=== PATIENT | male | born 1965 | race African-American/Black ===

== ENCOUNTER 2019-03-01 17:58 | Emergency (ER) | payer OTHER ==
[2019-03-01 18:58] LABS: #Eosinphils 0.3 thou/uL (0.0-0.7); #Lymphocytes 1.2 thou/uL (1.20-3.40); #Monocytes 0.6 thou/uL (0.11-0.59); #Neutrophils 2.8 thou/uL (1.40-6.50); %Basophils 0.1 % (0.0-1.0); %Eosinophils 5.6 % (0.0-10.0); %Lymphocytes 24.5 % (21.0-51.0); %Monocytes 13.1 % (0.0-10.0); %Neutrophils 56.6 % (42.0-75.0); Hemoglobin 12.4 g/dL (14.0-18.0); Mean Corpuscular HGB CONC 30.4 g/dL (32.0-36.0); Mean Corpuscular Hemoglobin 27.7 pg (27.0-31.0); Mean Corpuscular Volume 91.2 fL (78.0-98.0); Mean Platelet Volume 7.2 fL (7.4-10.4); Platelet Count 162 thou/uL (130-400); RBC Distribution Width 13.1 % (11.5-14.5); Red Blood Cell (RBC) Count 4.49 mill/uL (4.70-6.10); White Blood Cell (WBC) Count 4.9 thou/uL (4.8-10.8)
--- NOTE | 2019-03-01 19:20 | ULT ---
EXAM: Left lower extremity venous Doppler PROVIDED CLINICAL HISTORY: Edema FINDINGS: Grayscale and color Doppler sonography with spectral analysis was performed of the left common femora l, femoral, popliteal, posterior tibial, greater saphenous and profunda femoral veins. Evaluation is limited by patient body habitus and edema, with nonvisualization of the left common femoral, profu nda femoral, proximal femoral and mid to distal posterior tibial veins. The visualized venous structures demonstrate a normal sonographic appearance. IMPRESSION: No sonographic evidence for left lower extremity deep venous thrombosis with limitations as above.
[2019-03-01 19:26] LABS: ALT (SGPT) 19 U/L (8-55); AST (SGOT) 23 U/L (5-34); Albumin 3.4 g/dL (3.5-5.0); Alkaline Phosphatase 122 U/L (40-150); Anion Gap 9 mmol/L (10-20); BUN (Urea Nitrogen) 25 mg/dL (8.4-25.7); Bilirubin, Total 0.4 mg/dL (0.2-1.2); Calc. Creatinine Clearance 0 mL/min (70-130); Carbon Dioxide 27 mmol/L (22-29); Chloride 104 mmol/L (98-107); Estimated GFR-MDRD 75; Globulin 5.2 g/dL (2.4-3.5); Glucose 178 mg/dL (70-105); Potassium 5.4 mmol/L (3.5-5.1); Protein, Total 8.6 g/dL (6.0-8.3); Sodium 135 mmol/L (136-145)
[2019-03-01 19:48] LABS: PTT 33.8 SEC (22.9-36.1); Prothrombin Time 22.5 SEC (12.0-14.7)
[2019-03-01] MEDS ORDERED: Acetaminophen 325 MG TAB ONE (20:55)
== END 2019-03-01 20:47 ==
LOC: ERS 17:58
DX: I83.028 Varicose veins of left lower extremity with ulcer other part of lower leg (principal); L97.829 Non-pressure chronic ulcer of other part of left lower leg with unspecified severity; I99.8 Other disorder of circulatory system; D64.9 Anemia, unspecified; N40.0 Benign prostatic hyperplasia without lower urinary tract symptoms; G47.30 Sleep apnea, unspecified; Z86.718 Personal history of other venous thrombosis and embolism; E11.9 Type 2 diabetes mellitus without complications; I10 Essential (primary) hypertension; Z79.899 Other long term (current) drug therapy; Z79.82 Long term (current) use of aspirin; Z79.4 Long term (current) use of insulin
CPT/HCPCS: 36415; 80053; 83605; 85025; 85610; 85652; 85730; 86140; 87070; 87077; 87186; 87205

== ENCOUNTER 2019-03-22 12:50 | Emergency (ER) | payer OTHER ==
--- NOTE | 2019-03-22 13:57 | RAD ---
Exam:Left tibia fibula 2 views HISTORY: Pain. COMPARISON: 09/13/2015 FINDINGS: Degenerative change of the left knee, incompletely evaluated. No fracture. No cortical irre gularity or periosteal reaction Extensive soft tissue swelling. Questionable subcutaneous emphysema. Correlate clinically for soft ti ssue cellulitis IMPRESSION: 1. Correlate for soft tissue cellulitis. 2. Degenerative changes of the left knee, incompletely evaluate
[2019-03-22] MEDS ORDERED: Acetaminophen 500 MG TAB ONE (14:36)
[2019-03-22] MEDS ORDERED: Clindamycin/D5W 900 mg/50 ml Premix Bag ONE (14:37)
[2019-03-22 14:44] LABS: #Eosinphils 0.1 thou/uL (0.0-0.7); #Lymphocytes 0.8 thou/uL (1.20-3.40); #Monocytes 0.8 thou/uL (0.11-0.59); %Basophils 0.2 % (0.0-1.0); %Eosinophils 1.3 % (0.0-10.0); %Lymphocytes 9.6 % (21.0-51.0); %Monocytes 8.8 % (0.0-10.0); %Neutrophils 80.1 % (42.0-75.0); Hemoglobin 11.1 g/dL (14.0-18.0); Mean Corpuscular HGB CONC 31.7 g/dL (32.0-36.0); Mean Corpuscular Hemoglobin 28.5 pg (27.0-31.0); Mean Corpuscular Volume 89.8 fL (78.0-98.0); Mean Platelet Volume 7.2 fL (7.4-10.4); Platelet Count 180 thou/uL (130-400); RBC Distribution Width 13.2 % (11.5-14.5); Red Blood Cell (RBC) Count 3.92 mill/uL (4.70-6.10); White Blood Cell (WBC) Count 8.7 thou/uL (4.8-10.8)
[2019-03-22 15:05] LABS: ALT (SGPT) 20 U/L (8-55); AST (SGOT) 19 U/L (5-34); Alkaline Phosphatase 107 U/L (40-150); Anion Gap 9 mmol/L (10-20); BUN (Urea Nitrogen) 20 mg/dL (8.4-25.7); Bilirubin, Total 0.8 mg/dL (0.2-1.2); Calc. Creatinine Clearance 0 mL/min (70-130); Calcium 9.1 mg/dL (7.8-10.44); Carbon Dioxide 29 mmol/L (22-29); Chloride 101 mmol/L (98-107); Estimated GFR-MDRD 74; Globulin 5.8 g/dL (2.4-3.5); Glucose 182 mg/dL (70-105); Potassium 4.3 mmol/L (3.5-5.1); Protein, Total 8.8 g/dL (6.0-8.3); Sodium 135 mmol/L (136-145)
[2019-03-22] MEDS ORDERED: Ketorolac Tromethamine 30 MG/ML VIAL ONE (15:13)
== END 2019-03-22 15:50 ==
LOC: ERS 12:50
DX: L03.116 Cellulitis of left lower limb (principal); I11.0 Hypertensive heart disease with heart failure; I50.9 Heart failure, unspecified; E66.9 Obesity, unspecified; E11.9 Type 2 diabetes mellitus without complications; N40.0 Benign prostatic hyperplasia without lower urinary tract symptoms; D64.9 Anemia, unspecified; Z86.718 Personal history of other venous thrombosis and embolism; Z87.891 Personal history of nicotine dependence; Z79.899 Other long term (current) drug therapy; Z79.4 Long term (current) use of insulin; Z79.01 Long term (current) use of anticoagulants
CPT/HCPCS: 80053; 85025; 96365; 96375; J1885; J3490

== ENCOUNTER 2020-01-23 22:29 | Inpatient (IN) | payer OTHER ==
[2020-01-23 22:57] LABS: #Eosinphils 0.1 thou/uL (0.0-0.7); #Lymphocytes 1.5 thou/uL (1.20-3.40); #Monocytes 0.7 thou/uL (0.11-0.59); #Neutrophils 2.6 thou/uL (1.40-6.50); %Basophils 0.5 % (0.0-1.0); %Eosinophils 2.7 % (0.0-10.0); %Lymphocytes 30.7 % (21.0-51.0); %Monocytes 14.4 % (0.0-10.0); %Neutrophils 51.7 % (42.0-75.0); Hemoglobin 12.5 g/dL (14.0-18.0); Mean Corpuscular HGB CONC 33.2 g/dL (32.0-36.0); Mean Corpuscular Hemoglobin 29.5 pg (27.0-31.0); Mean Corpuscular Volume 88.8 fL (78.0-98.0); Platelet Count 255 thou/uL (130-400); RBC Distribution Width 12.7 % (11.5-14.5); Red Blood Cell (RBC) Count 4.23 mill/uL (4.70-6.10)
[2020-01-23 23:12] LABS: Bilirubin Negative (Negative); Blood, Urine Negative (Negative); Clarity Clear (Clear); Glucose, Urine (Dipstick) Normal (Negative); Leukocyte Negative Leu/uL (Negative); Nitrite Negative (Negative); Protein, Urine (Dipstick) 70 mg/dL (Neg-Trace); RBC/HPF 0-3 HPF (0-3); Squamous Epithelial 0-3 HPF (0-3); Urobilinogen 6 mg/dL (Less than 2)
[2020-01-23 23:13] LABS: Bacteria/HPF 1+ HPF (None Seen)
[2020-01-23 23:28] LABS: ALT (SGPT) 42 U/L (8-55); AST (SGOT) 47 U/L (5-34); Albumin 2.8 g/dL (3.5-5.0); Alkaline Phosphatase 76 U/L (40-110); Anion Gap 12 mmol/L (10-20); BUN (Urea Nitrogen) 15 mg/dL (8.4-25.7); Bilirubin, Total 0.5 mg/dL (0.2-1.2); Calc. Creatinine Clearance 0 mL/min (70-130); Calcium 8.2 mg/dL (7.8-10.44); Carbon Dioxide 23 mmol/L (22-29); Chloride 99 mmol/L (98-107); Estimated GFR-MDRD 66; Globulin 5.5 g/dL (2.4-3.5); Glucose 151 mg/dL (70-105); Lipase 48 U/L (8-78); Potassium 3.6 mmol/L (3.5-5.1); Protein, Total 8.3 g/dL (6.0-8.3); Sodium 130 mmol/L (136-145)
[2020-01-23 23:39] LABS: CKMB 0.7 ng/mL (0-6.6)
[2020-01-24] MEDS ORDERED: Nitroglycerin 0.4 MG TAB (25 Tab Bottle) PO PRN (02:05)
[2020-01-24] MEDS ORDERED: Dextrose 5% in Water 1,000 ML IV PRN (02:27)
[2020-01-24] MEDS ORDERED: Dextrose 50% Abboject 50 ML SYRINGE SLOW IVP PRN (02:27)
[2020-01-24] MEDS ORDERED: Aspirin 325 MG TAB PO SCH (02:30)
--- NOTE | 2020-01-24 02:38 | PDOC.EVN ---
Event Note - Event Note Event Note: H&P dictated [id number]
[2020-01-24 03:33] LABS: ALT (SGPT) 40 U/L (8-55); AST (SGOT) 46 U/L (5-34); Albumin 2.7 g/dL (3.5-5.0); Alkaline Phosphatase 71 U/L (40-110); Anion Gap 12 mmol/L (10-20); BUN (Urea Nitrogen) 15 mg/dL (8.4-25.7); Bilirubin, Total 0.5 mg/dL (0.2-1.2); Calc. Creatinine Clearance 0 mL/min (70-130); Calcium 8.1 mg/dL (7.8-10.44); Carbon Dioxide 25 mmol/L (22-29); Chloride 99 mmol/L (98-107); Estimated GFR-MDRD 64; Globulin 5.6 g/dL (2.4-3.5); Glucose 132 mg/dL (70-105); Potassium 3.8 mmol/L (3.5-5.1); Protein, Total 8.3 g/dL (6.0-8.3); Sodium 132 mmol/L (136-145)
[2020-01-24 03:53] LABS: CKMB 1.1 ng/mL (0-6.6)
--- NOTE | 2020-01-24 04:00 | HP ---
CHIEF COMPLAINT: Abdominal pain. HISTORY OF PRESENT ILLNESS: Mr. Cordero is a 54-year-old male with past medical history of diabetes mellitus, hypertension, morbid obesity, hepatitis C, peripheral vascular disease, deep venous thrombosis, CHF?, among others presents to the emergency room with abdominal pain, lower, associated with nausea and vomiting. The patient also reported dizziness and weakness. Initial blood pressure was 185/120. Three sprays of nitroglycerin and 1 inch nitroglycerin paste around 10 p.m. Blood pressure on presentation was 135/84. Workup in the emergency room including CT of the abdomen, no acute finding. Lab work; the patient had an indeterminate troponin of 0.059. EKG, no acute finding. The patient had a creatinine of 1.36. Sodium of 130. The patient is being admitted to the hospital for further management. PAST MEDICAL HISTORY: As mentioned above in history of present illness. PAST SURGICAL HISTORY: 1. Prostate biopsy. 2. Incision and drainage to the leg. 3. Tracheostomy. SOCIAL HISTORY: He is a former smoker. Denies alcohol drinking or drug abuse. The patient is currently in shelter/intermediate. FAMILY HISTORY: Reviewed and noncontributory. ALLERGIES: IBUPROFEN AND VANCOMYCIN. HOME MEDICATIONS: Please see home medication reconciliation form for updated medications. REVIEW OF SYSTEMS: Review of 14 systems is negative except what is mentioned in the history of present illness. PHYSICAL EXAMINATION: GENERAL: The patient is awake, alert, in moderate distress, morbidly obese. VITAL SIGNS: Blood pressure 158/55, pulse is 94, respiratory rate is 20, temperature is 99, and oxygen saturation 100% on room air. HEAD AND NECK: Normocephalic and atraumatic. Neck is supple. No JVD. CHEST: Fair bilateral air entry. HEART: S1 and S2. Regular. ABDOMEN: Soft with mild lower abdominal tenderness. Bowel sounds present, morbidly obese. NEUROLOGIC: Awake, alert, and oriented x3. PSYCH: Normal mood. EXTREMITIES: Left lower leg is wrapped in dressing. The patient has chronic ulcers. NEUROLOGIC: Awake, alert, and oriented x4. No focal deficits. PSYCH: Unable to assess. EXTREMITIES: No clubbing. No cyanosis. LABORATORY DATA: Sodium is 130, potassium is 3.6, creatinine 1.36, glucose 151. WBC is 5, hemoglobin 12.5, platelets 255. Troponin 0.059. CT of the abdomen reported as no acute finding, official report is not available at the time of dictation. ASSESSMENT: 1. Acute abdominal pain. 2. Indeterminate/mildly elevated troponin. 3. Diabetes mellitus, type 2. 4. Hypertension. 5. Morbid obesity. 6. Acute kidney injury. PLAN: 1. Admit. 2. Tele monitoring. 3. Aspirin was given. 4. We will start the patient cautiously on IV fluids, reassess in a.m. 5. Monitor kidney function and urine output. 6. Serial troponins. 7. Consult Cardiology in a.m. for evaluation and further recommendations. 8. Reconcile home medications. 9. DVT prophylaxis as appropriate. 10. Expected length of stay, 1 midnight if the patient is stable and further workup negative. Job ID: [id number]
[2020-01-24 04:18] VITALS: BMI 62.1
[2020-01-24] MEDS: Sodium Chloride 0.9% 1,000 ML IV SCH ×2 (04:25→15:18)
[2020-01-24] MEDS ORDERED: Enoxaparin Sodium 40 MG/0.4 ML SYRINGE SC SCH (09:00)
[2020-01-24] MEDS ORDERED: Aspirin 325 mg Enteric Coated Tablet PO SCH (09:00)
--- NOTE | 2020-01-24 10:38 | CT ---
PRELIMINARY REPORT/[facility]/EMERGENCY AFTER HOURS PROCEDURE EXAM: CT Abdomen and Pelvis with Intravenous Contrast CLINICAL HISTORY: Patient here for abdominal that started 3-4 days ago. Located in upper abdomen. Fee ls crampy. Had an episode of vomiting 3 days ago. Denies any cardiac hx. No diarrhea. Denies any feve r. Denies any abd surgeries. Pain got worse. Positioning makes pain better. Denies urinary sx. States that he had Lt sided chest pain earlier. TECHNIQUE: Axial computed tomography images of the abdomen and pelvis with intravenous contrast. CONTRAST: With; 100ML ISO 370 COMPARISON: None provided. FINDINGS: LUNG BASES: Moderate patchy peripheral-predominant opacities in the lung bases most consistent with i nfectious pneumonitis. Cardiomegaly. LIVER: Unremarkable. GALLBLADDER AND BILE DUCTS: Cholelithiasis. PANCREAS: Unremarkable. SPLEEN: Unremarkable. ADRENAL GLANDS: Unremarkable. KIDNEYS, URETERS, AND BLADDER: Moderate-severe left renal atrophy. STOMACH AND BOWEL: No obstruction. No wall thickening. No CT evidence of colitis or acute diverticuli tis. APPENDIX: No CT evidence for appendicitis. PERITONEUM: No free fluid. No free air. REPRODUCTIVE: Unremarkable as visualized. VASCULATURE: IVC filter. BONES: Congenitally shortened pedicles and degenerative changes resulting in varying degrees of centr al canal and neural foraminal stenosis. ABDOMINAL WALL AND SOFT TISSUES: Unremarkable. MISCELLANEOUS: Limited evaluation due to scatter from patient body habitus and motion blur. IMPRESSION: 1. Limited evaluation due to scatter from patient body habitus and motion blur. 2. Moderate patchy peripheral-predominant opacities in the lung bases most consistent with infectious pneumonitis. 3. Cardiomegaly. 4. Cholelithiasis. 5. Moderate-severe left renal atrophy. 6. Congenitally shortened pedicles and degenerative changes resulting in varying degrees of central c anal and neural foraminal stenosis. ELECTRONICALLY SIGNED BY: Urban Celaya MD Jan 24, 2020 12:35:48 AM CDT FINAL REPORT CT ABDOMEN AND PELVIS WITH IV CONTRAST: No acute intraabdominal process. There are other findings noted on preliminary report. I am in agre ement with the preliminary report. POS: AGW
--- NOTE | 2020-01-24 12:40 | PDOC.HOSPP ---
- Subjective Encounter Date: 01/24/20 Encounter Time: 12:40 Subjective: Mr. Cordero was seen today in follow-up of abdominal pain. He says the pin wants to make him cough. He notes some mild dyspnea as well. - Objective Vital Signs & Weight: Vital Signs (12 hours) Temp Pulse Resp BP Pulse Ox 01/24/20 07:57 97.1 F L 93 17 174/93 H 99 01/24/20 05:00 96.8 F L 90 18 166/78 H 94 L 01/24/20 04:18 99.7 F H 93 20 149/96 H 92 L Weight Weight 408 lb 12.8 oz I&O: 01/23/20 01/24/20 01/25/20 06:59 06:59 06:59 Intake Total 300 Balance 300 Result Diagrams: 01/23/20 22:42 01/24/20 03:03 Hospitalist ROS - Medication Medications: Active Medications Generic Name Dose Route Start Last Admin Trade Name Freq PRN Reason Stop Dose Admin Aspirin 325 mg 01/24/20 09:00 01/24/20 07:51 Ecotrin PO 325 mg DAILY GLORIA Administration Enoxaparin Sodium 40 mg 01/24/20 09:00 01/24/20 07:51 Lovenox SC 40 mg 0900 GLORIA Administration Sodium Chloride 1,000 mls @ 75 mls/hr 01/24/20 02:30 01/24/20 04:25 Normal Saline 0.9% IV 1,000 mls .[id number] GLORIA Administration - Exam Eye: PERRL, anicteric sclera Heart: RRR, no murmur, no gallops, no rubs, normal peripheral pulses Respiratory: CTAB (+ mild rales at the bases), no wheezes, no ronchi, no tachypnea Gastrointestinal: soft, non-tender, non-distended, normal bowel sounds, no palpable masses Extremities: 1+ LE edema (Left >right, with chronic venous stasis changes) Hosp A/P (1) Abdominal pain Code(s): R10.9 - UNSPECIFIED ABDOMINAL PAIN Status: Acute (2) Morbid obesity Code(s): E66.01 - MORBID (SEVERE) OBESITY DUE TO EXCESS CALORIES Status: Acute (3) Obstructive sleep apnea of adult Code(s): G47.33 - OBSTRUCTIVE SLEEP APNEA (ADULT) (PEDIATRIC) Status: Acute (4) DM type 2 (diabetes mellitus, type 2) Status: Chronic (5) Hypertension Code(s): I10 - ESSENTIAL (PRIMARY) HYPERTENSION Status: Chronic - Plan * Abdominal pain- I suspect this is referred from from Pneumonia. The CT scan results were noted. His troponin's are elevated, but less than what they have been in the past. I doubt this is cardiac * HTN- blood pressure is elevated- will re-start his home medications * DM- blood glucose is stable * Awaiting COVID test
[2020-01-24 13:26] LABS: INR-International Normal Ratio 3.1; Prothrombin Time 31.8 sec (12.0-14.7)
[2020-01-24] MEDS ORDERED: Metoprolol Tartrate 100 MG TAB PO SCH (13:45)
[2020-01-24] MEDS: Furosemide 40 MG TAB PO SCH (13:53)
[2020-01-24 14:13] LABS: SARS-CoV-2 MS2 Positive; SARS-CoV-2 N Gene Positive; SARS-CoV-2 S Gene Negative; SARS-CoV-2 orf1ab Positive
[2020-01-24] MEDS ORDERED: Non-Formulary Item 1 EACH (Terazosin Hcl [Hytrin] 10 MG) PO SCH (21:00)
[2020-01-24] MEDS ORDERED: Non-Formulary Item 1 EACH (Ascorbate Calcium [Vitamin C] 500 MG) PO SCH (21:00)
[2020-01-24] MEDS ORDERED: Furosemide 80 MG TAB PO SCH (21:00)
[2020-01-24] MEDS: carBAMazepine 200 MG TAB PO SCH (22:57)
[2020-01-24] MEDS: Ascorbic Acid 500 mg Chewable Tablet PO SCH (22:57)
[2020-01-24] MEDS: Terazosin HCl 5 MG CAP PO SCH (22:58)
[2020-01-24] MEDS: Metoprolol Tartrate 100 MG TAB PO SCH (22:58)
[2020-01-24] MEDS: NPH, Human Insulin Isophane 300 UNIT/3 ML VIAL SC SCH ×2 (23:04→23:38)
[2020-01-25 05:34] LABS: INR-International Normal Ratio 2.7; Prothrombin Time 28.3 sec (12.0-14.7)
[2020-01-25 05:46] LABS: Anion Gap 7 mmol/L (10-20); BUN (Urea Nitrogen) 14 mg/dL (8.4-25.7); Calc. Creatinine Clearance 184 mL/min (70-130); Calcium 8.5 mg/dL (7.8-10.44); Carbon Dioxide 30 mmol/L (22-29); Chloride 103 mmol/L (98-107); Estimated GFR-MDRD 77; Glucose 214 mg/dL (70-105); Potassium 4.4 mmol/L (3.5-5.1); Sodium 136 mmol/L (136-145)
[2020-01-25] MEDS: Sodium Chloride 0.9% 1,000 ML IV SCH (05:59)
[2020-01-25] MEDS: HumaLOG 300 UNITS/3 ML VIAL SC PRN ×3 (05:59→16:33)
[2020-01-25 06:05] LABS: Band 4 % (5-11); Eosinophils 3 % (0-10); Hemoglobin 12.7 g/dL (14.0-18.0); Lymphocytes 24 % (21-51); MDiff Complete? YES; Mean Corpuscular HGB CONC 33.2 g/dL (32.0-36.0); Mean Corpuscular Hemoglobin 30.1 pg (27.0-31.0); Mean Corpuscular Volume 90.5 fL (78.0-98.0); Mean Platelet Volume 6.8 fL (7.4-10.4); Monocytes 8 % (0-10); Neutrophil 61 % (42-75); Platelet Count 280 thou/uL (130-400); RBC Distribution Width 12.8 % (11.5-14.5); Red Blood Cell (RBC) Count 4.21 mill/uL (4.70-6.10); White Blood Cell (WBC) Count 4.7 thou/uL (4.8-10.8)
[2020-01-25] MEDS ORDERED: cloNIDine 0.1 MG TAB PO PRN (08:12)
[2020-01-25] MEDS ORDERED: Non-Formulary Item 1 EACH (Multivitamin [Multivitamins] 1 CAP) PO SCH (09:00)
[2020-01-25] MEDS ORDERED: Warfarin Sodium 2.5 MG TAB PO SCH (09:00)
[2020-01-25] MEDS: Ascorbic Acid 500 mg Chewable Tablet PO SCH ×2 (09:40→20:09)
[2020-01-25] MEDS: Metoprolol Tartrate 100 MG TAB PO SCH ×2 (09:40→20:10)
[2020-01-25] MEDS: carBAMazepine 200 MG TAB PO SCH ×2 (09:40→20:09)
[2020-01-25] MEDS: Multivit, Therapeutic 1 TAB PO SCH (09:40)
[2020-01-25] MEDS: Spironolactone 25 MG TAB PO SCH (09:41)
[2020-01-25] MEDS: Furosemide 40 MG TAB PO SCH ×2 (09:41→16:17)
--- NOTE | 2020-01-25 16:04 | PDOC.HOSPP ---
- Subjective Encounter Date: 01/25/20 Encounter Time: 16:02 Subjective: Mr. Cordero was seen today in follow-up of COVID pneumonia. He notes pain in his chest when he coughs, and he feels short of breath, when he coughs. Otherwise he feels ok. He denies leg pain or swelling. - Objective Vital Signs & Weight: Vital Signs (12 hours) Temp Pulse Resp BP Pulse Ox 01/25/20 11:52 99.3 F 92 18 166/95 H 98 01/25/20 08:46 96 01/25/20 07:43 99.2 F 110 H 20 177/109 H 96 Weight Admit Weight 408 lb 12.8 oz Weight 408 lb 12.8 oz I&O: 01/24/20 01/25/20 01/26/20 06:59 06:59 06:59 Intake Total 300 2445 Output Total 1550 490 Balance 300 895 490 Result Diagrams: 01/25/20 04:39 01/25/20 04:39 Additional Labs: Accuchecks 01/25/20 01/24/20 01/24/20 11:43 23:14 17:51 POC Glucose 160 H 141 H 143 H Hospitalist ROS - Medication Medications: Active Medications Generic Name Dose Route Start Last Admin Trade Name Freq PRN Reason Stop Dose Admin Ascorbic Acid 500 mg 01/24/20 21:00 01/25/20 09:40 Vitamin C PO 500 mg BID GLORIA Administration Carbamazepine 600 mg 01/24/20 21:00 01/25/20 09:40 Tegretol PO 600 mg BID GLORIA Administration Furosemide 40 mg 01/24/20 14:00 01/25/20 09:41 Lasix PO 40 mg 0900,1400 GLORIA Administration Insulin Human Lispro 0 units 01/24/20 02:27 01/25/20 11:46 Humalog SC 2 unit .MILD SLIDING SCALE PRN Administration Mild Correctional Scale Insulin Human NPH 26 unit 01/24/20 21:00 01/24/20 23:38 Humulin N SC Not Given HS GLORIA Isosorbide Mononitrate 60 mg 01/25/20 09:00 01/25/20 09:41 Imdur PO 60 mg DAILY GLORIA Administration Metoprolol Tartrate 100 mg 01/24/20 21:00 01/25/20 09:40 Lopressor PO 100 mg BID GLORIA Administration Multivitamins 1 tab 01/25/20 09:00 01/25/20 09:40 Theragran PO 1 tab DAILY GLORIA Administration Sodium Chloride 10 ml 01/24/20 21:00 01/25/20 09:41 Flush - Normal Saline IVF Not Given Q12HR GLORIA Spironolactone 50 mg 01/25/20 09:00 01/25/20 09:41 Aldactone PO 50 mg DAILY GLORIA Administration Terazosin HCl 10 mg 01/24/20 21:00 01/24/20 22:58 Hytrin PO 10 mg HS GLORIA Administration - Exam Eye: PERRL, anicteric sclera Heart: RRR, no murmur, no gallops, no rubs, normal peripheral pulses Respiratory: rales, rhonchi (+ bilateral rales and rhonchi9 throughout.) Gastrointestinal: soft, non-tender, non-distended, normal bowel sounds Extremities: 1+ LE edema (+ chronic venous stasis changes) Hosp A/P (1) Abdominal pain Code(s): R10.9 - UNSPECIFIED ABDOMINAL PAIN Status: Acute (2) Morbid obesity Code(s): E66.01 - MORBID (SEVERE) OBESITY DUE TO EXCESS CALORIES Status: Acute (3) Obstructive sleep apnea of adult Code(s): G47.33 - OBSTRUCTIVE SLEEP APNEA (ADULT) (PEDIATRIC) Status: Acute (4) DM type 2 (diabetes mellitus, type 2) Status: Chronic (5) Hypertension Code(s): I10 - ESSENTIAL (PRIMARY) HYPERTENSION Status: Chronic - Plan * COVID pneumonia- continue symptomatic care * Will continue full dose lovenox, and trend inflammatory markers * HTN- Continue his home medications, and add Clonidine as needed * DM- blood glucose is stable
[2020-01-25] MEDS: Warfarin Sodium 2.5 MG TAB PO SCH (16:17)
[2020-01-25] MEDS: Terazosin HCl 5 MG CAP PO SCH (20:09)
[2020-01-25] MEDS: NPH, Human Insulin Isophane 300 UNIT/3 ML VIAL SC SCH (21:16)
[2020-01-26] MEDS: hydrALAZINE 25 MG TAB PO PRN ×2 (02:54→11:34)
[2020-01-26 05:51] LABS: INR-International Normal Ratio 1.8; Prothrombin Time 20.6 sec (12.0-14.7)
[2020-01-26 05:53] LABS: D-Dimer Test 0.87 *mcg/mL (0.27-0.43)
--- NOTE | 2020-01-26 06:31 | CON ---
DATE OF CONSULTATION: 01/25/2020 REASON FOR CONSULTATION: COVID pneumonia. HISTORY OF PRESENT ILLNESS: A 54-year-old whom I had seen in the past in 2016 with a history of morbid obesity, type 2 diabetes, BRANDEN with recurrent cellulitis in lower extremities and lymphedema. This time, he was brought in with a 14-day history of cough, worsening abdominal pain, diarrhea, and some vomiting. Initial findings are BP 130/70, temperature 98.8, pulse 103, respiratory rate, and O2 saturations 97 room air. He did not appear in distress. There is some tenderness in the abdomen, which is diffuse. Other findings are white cell count 5.0, hemoglobin 12, platelets 255 with total lymphocyte count 1.5. COVID was detected. Creatinine 1.36, AST 47, and albumin 2.8. The patient has not required oxygen supplementation and has kept his O2 sats anywhere from 96 to 100. Currently, he is still having intermittent coughing spells, some sputum production, still with some abdominal cramps and diarrhea. No more vomiting. No headaches. No visual symptoms, sore throat, odynophagia, or dysphagia. No odor or smell disturbance. No back pain. No lower extremity symptoms. MEDICAL HISTORY: 1. Obesity. 2. Cellulitis in the lower extremities. 3. Sleep apnea. 4. Anemia. 5. Hypertension. 6. Prior deep vein thrombosis. FAMILY HISTORY: Type 2 diabetes and obesity. ALLERGIES: VANCOMYCIN AND IBUPROFEN. SOCIAL HISTORY: He is an inmate at [facility] for quite a few years now. PHYSICAL EXAMINATION: VITAL SIGNS: T-max 99.7 when he came and now 99.3, blood pressure 160/90, pulse 92, respirations 18, and O2 saturation 98. SKIN: He has a little small ulcer in the left leg anterior aspect with fresh granulation tissue. He has a peripheral IV access and voiding spontaneously in the urinal. HEENT: Ocular movements conjugate. Oral cavity normal. NECK: Supple. LUNGS: Symmetric air entry. No crackles or wheezing. HEART: S1 and S2. Regular rate. No S3 or S4. ABDOMEN: Very prominent panniculus and mildly tender. Bowel sounds are present. No bladder distention. No genital abnormalities. EXTREMITIES: He has lymphedema in lower extremities. He moves extremities equally. NEUROLOGIC: Cognitive function appears to be intact. He is able to speak in full sentences. Oriented and alert. LABORATORY DATA: Last labs with sodium 136 and creatinine 1.19. Ferritin 383, single measurement thus far. INR 2.7. He had an abdomen and pelvis CT, which was done for evaluation of abdominal pain and it showed patchy opacities in lung bases, cardiomegaly, and renal atrophy. ASSESSMENT: 1. Obesity. 2. Sleep apnea. 3. COVID-19 infection with 2 weeks duration course of illness thus far, not requiring oxygen supplementation. The patient is not a candidate for remdesivir and I do not think he would be a candidate for plasma or other intervention due to the mild course of his illness thus far. He is at 14 days now and I would not expect him to deteriorate going forward. Job ID: [id number] [facility]
[2020-01-26] MEDS: carBAMazepine 200 MG TAB PO SCH ×2 (09:17→21:07)
[2020-01-26] MEDS: Folic Acid/Vit B Comp W-C PO SCH (09:18)
[2020-01-26] MEDS: Furosemide 40 MG TAB PO SCH ×2 (09:18→15:34)
[2020-01-26] MEDS: Metoprolol Tartrate 100 MG TAB PO SCH ×2 (09:18→21:08)
[2020-01-26] MEDS: Ascorbic Acid 500 mg Chewable Tablet PO SCH ×2 (09:18→21:07)
[2020-01-26] MEDS: Multivit, Therapeutic 1 TAB PO SCH (09:18)
[2020-01-26] MEDS: Spironolactone 25 MG TAB PO SCH (09:18)
[2020-01-26] MEDS: cloNIDine 0.1 MG TAB PO SCH ×3 (09:20→21:08)
[2020-01-26] MEDS: HumaLOG 300 UNITS/3 ML VIAL SC PRN ×2 (12:20→17:36)
--- NOTE | 2020-01-26 17:19 | PRG ---
DATE OF SERVICE: 01/26/2020 SUBJECTIVE: He is feeling better except for, he is very hungry because they do not give him enough food. No cough. No dyspnea. Abdominal pain has resolved. OBJECTIVE: VITAL SIGNS: He has been afebrile, pulse 99, O2 saturations 99 on room air. GENERAL: Appears in no distress and oriented. LUNGS: Clear. HEART: S1 and S2. Regular rate. ABDOMEN: Soft, not distended or tender. LABORATORY DATA: White cell count 4.7 and hemoglobin 12.7. CRP is 10.65. Ferritin was 383. D-dimer 0.87. ASSESSMENT AND DISCUSSION: 1. Obesity. 2. Sleep apnea. 3. COVID-19 infection with stable course. We will recheck his inflammatory markers tomorrow. If they are stable or going down, I would consider discharge planning. This is the 15th day of illness and I do not think he is going to deteriorate from here. Job ID: [id number]
--- NOTE | 2020-01-26 17:33 | PDOC.HOSPP ---
- Subjective Encounter Date: 01/26/20 Encounter Time: 17:31 Subjective: Mr. Cordero was seen today in follow-up of COVID pneumonia. He is beginning to feel better. He was laying flat in bed. His appetite has improved, and he says he is not getting enough to eat. - Objective Vital Signs & Weight: Vital Signs (12 hours) Temp Pulse Resp BP Pulse Ox 01/26/20 15:41 99.1 F 99 18 194/94 H 99 01/26/20 12:00 98.7 F 82 18 184/92 H 98 01/26/20 09:26 98.8 F 110 H 21 H 224/132 H 98 Weight Admit Weight 408 lb 12.8 oz Weight 401 lb 8 oz I&O: 01/25/20 01/26/20 01/27/20 06:59 06:59 06:59 Intake Total 2445 1380.75 Output Total 1550 2090 Balance 895 -709.25 Result Diagrams: 01/25/20 04:39 01/25/20 04:39 Additional Labs: Accuchecks 01/26/20 01/26/20 01/26/20 15:44 11:48 05:51 POC Glucose 187 H 190 H 164 H 01/25/20 20:20 POC Glucose 144 H Hospitalist ROS - Medication Medications: Active Medications Generic Name Dose Route Start Last Admin Trade Name Freq PRN Reason Stop Dose Admin Ascorbic Acid 500 mg 01/24/20 21:00 01/26/20 09:18 Vitamin C PO 500 mg BID GLORIA Administration Carbamazepine 600 mg 01/24/20 21:00 01/26/20 09:17 Tegretol PO 600 mg BID GLORIA Administration Clonidine 0.1 mg 01/26/20 09:00 01/26/20 15:34 Catapres PO 0.1 mg TID GLORIA Administration Furosemide 40 mg 01/24/20 14:00 01/26/20 15:34 Lasix PO 40 mg 0900,1400 GLORIA Administration Hydralazine HCl 25 mg 01/24/20 14:41 01/26/20 11:34 Apresoline PO 25 mg TIDPRN PRN Administration SBP Greater Than 170 Insulin Human Lispro 0 units 01/24/20 02:27 01/26/20 12:20 Humalog SC 2 unit .MILD SLIDING SCALE PRN Administration Mild Correctional Scale Insulin Human NPH 26 unit 01/24/20 21:00 01/25/20 21:16 Humulin N SC Not Given HS GLORIA Isosorbide Mononitrate 60 mg 01/25/20 09:00 01/26/20 09:18 Imdur PO 60 mg DAILY GLORIA Administration Metoprolol Tartrate 100 mg 01/24/20 21:00 01/26/20 09:18 Lopressor PO 100 mg BID GLORIA Administration Multivitamins 1 tab 01/25/20 09:00 01/26/20 09:18 Theragran PO 1 tab DAILY GLORIA Administration Sodium Chloride 10 ml 01/24/20 21:00 01/26/20 09:20 Flush - Normal Saline IVF 10 ml Q12HR GLORIA Administration Spironolactone 50 mg 01/25/20 09:00 01/26/20 09:18 Aldactone PO 50 mg DAILY GLROIA Administration Terazosin HCl 10 mg 01/24/20 21:00 01/25/20 20:09 Hytrin PO 10 mg HS GLORIA Administration Vitamin B Complex/Vit C/Folic Acid 1 tab 01/26/20 09:00 01/26/20 09:18 Nephro-Josafat Tablet PO 1 tab DAILY GLORIA Administration Warfarin Sodium 2.5 mg 01/25/20 17:00 01/25/20 16:17 Coumadin PO 2.5 mg 1700 GLORIA Administration - Exam Eye: PERRL, anicteric sclera Heart: RRR, no murmur, no gallops, no rubs, normal peripheral pulses Respiratory: CTAB, no wheezes, no rales, no ronchi, normal chest expansion Gastrointestinal: soft, non-tender, non-distended, normal bowel sounds, no palpable masses, no hepatomegaly Extremities: 1+ LE edema (+ venous stasis changes) Hosp A/P (1) Abdominal pain Code(s): R10.9 - UNSPECIFIED ABDOMINAL PAIN Status: Acute (2) Morbid obesity Code(s): E66.01 - MORBID (SEVERE) OBESITY DUE TO EXCESS CALORIES Status: Acute (3) Obstructive sleep apnea of adult Code(s): G47.33 - OBSTRUCTIVE SLEEP APNEA (ADULT) (PEDIATRIC) Status: Acute (4) DM type 2 (diabetes mellitus, type 2) Status: Chronic (5) Hypertension Code(s): I10 - ESSENTIAL (PRIMARY) HYPERTENSION Status: Chronic - Plan * COVID pneumonia- continue symptomatic care * Will continue full dose lovenox, and trend inflammatory markers * HTN- Scheduled Clonidine was added * DM- blood glucose is stable * Hopefully discharge tomorrow if his inflammatory markers show a downward trend
[2020-01-26] MEDS ORDERED: Labetalol HCl 100 MG/20 ML VIAL SLOW IVP PRN (17:35)
[2020-01-26] MEDS: Warfarin Sodium 2.5 MG TAB PO SCH (17:35)
[2020-01-26] MEDS: NPH, Human Insulin Isophane 300 UNIT/3 ML VIAL SC SCH (21:10)
[2020-01-26] MEDS: Terazosin HCl 5 MG CAP PO SCH (21:11)
[2020-01-27] MEDS: hydrALAZINE 25 MG TAB PO PRN (02:01)
[2020-01-27] MEDS: HumaLOG 300 UNITS/3 ML VIAL SC PRN ×2 (06:08→13:11)
[2020-01-27 06:19] LABS: INR-International Normal Ratio 1.5; Prothrombin Time 18.2 sec (12.0-14.7)
[2020-01-27 06:20] LABS: D-Dimer Test 1.15 *mcg/mL (0.27-0.43)
[2020-01-27] MEDS: carBAMazepine 200 MG TAB PO SCH ×2 (09:50→20:26)
[2020-01-27] MEDS: Metoprolol Tartrate 100 MG TAB PO SCH ×2 (09:51→20:27)
[2020-01-27] MEDS: Ascorbic Acid 500 mg Chewable Tablet PO SCH ×2 (09:51→20:27)
[2020-01-27] MEDS: Furosemide 40 MG TAB PO SCH ×2 (09:51→13:00)
[2020-01-27] MEDS: cloNIDine 0.1 MG TAB PO SCH ×3 (09:51→20:28)
[2020-01-27] MEDS: Spironolactone 25 MG TAB PO SCH (09:51)
[2020-01-27] MEDS: Multivit, Therapeutic 1 TAB PO SCH (09:52)
[2020-01-27] MEDS: Folic Acid/Vit B Comp W-C PO SCH (09:52)
--- NOTE | 2020-01-27 13:35 | PDOC.HOSPP ---
- Subjective Encounter Date: 01/27/20 Encounter Time: 13:34 Subjective: Mr. Cordero was seen today in follow-up of COVID pneumonia. He notes some diarrhea, but otherwise ok. His breathing has improved. - Objective Vital Signs & Weight: Vital Signs (12 hours) Temp Pulse Resp BP BP Pulse Ox 01/27/20 10:15 96.6 F L 89 17 183/92 H 94 L 01/27/20 03:15 99.0 F 103 H 16 178/103 H 96 Weight Admit Weight 408 lb 12.8 oz Weight 402 lb I&O: 01/26/20 01/27/20 01/28/20 06:59 06:59 06:59 Intake Total 1380.75 1090 Output Total 2090 1700 Balance -709.25 -610 Result Diagrams: 01/25/20 04:39 01/25/20 04:39 Additional Labs: Accuchecks 01/27/20 01/27/20 01/27/20 13:10 10:09 06:11 POC Glucose 176 H 135 H 154 H 01/27/20 01/26/20 00:28 15:44 POC Glucose 164 H 187 H Hospitalist ROS - Medication Medications: Active Medications Generic Name Dose Route Start Last Admin Trade Name Freq PRN Reason Stop Dose Admin Ascorbic Acid 500 mg 01/24/20 21:00 01/27/20 09:51 Vitamin C PO 500 mg BID GLORIA Administration Carbamazepine 600 mg 01/24/20 21:00 01/27/20 09:50 Tegretol PO 600 mg BID GLORIA Administration Clonidine 0.1 mg 01/25/20 08:12 01/27/20 04:42 Catapres PO 0.1 mg Q4H PRN Administration SBP GREATER THAN 160 Clonidine 0.2 mg 01/27/20 09:00 01/27/20 09:51 Catapres PO 0.2 mg TID GLORIA Administration Furosemide 40 mg 01/24/20 14:00 01/27/20 13:00 Lasix PO 40 mg 0900,1400 GLORIA Administration Hydralazine HCl 25 mg 01/24/20 14:41 01/27/20 02:01 Apresoline PO 25 mg TIDPRN PRN Administration SBP Greater Than 170 Insulin Human Lispro 0 units 01/24/20 02:27 01/27/20 13:11 Humalog SC 2 unit .MILD SLIDING SCALE PRN Administration Mild Correctional Scale Insulin Human NPH 26 unit 01/24/20 21:00 01/26/20 21:10 Humulin N SC 26 unit HS GLORIA Administration Isosorbide Mononitrate 60 mg 01/25/20 09:00 01/27/20 09:52 Imdur PO 60 mg DAILY GLORIA Administration Metoprolol Tartrate 100 mg 01/24/20 21:00 01/27/20 09:51 Lopressor PO 100 mg BID GLORIA Administration Multivitamins 1 tab 01/25/20 09:00 01/27/20 09:52 Theragran PO 1 tab DAILY GLORIA Administration Sodium Chloride 10 ml 01/24/20 21:00 01/27/20 09:52 Flush - Normal Saline IVF 10 ml Q12HR GLORIA Administration Spironolactone 50 mg 01/25/20 09:00 01/27/20 09:51 Aldactone PO 50 mg DAILY GLORIA Administration Terazosin HCl 10 mg 01/24/20 21:00 01/26/20 21:11 Hytrin PO 10 mg HS GLORIA Administration Vitamin B Complex/Vit C/Folic Acid 1 tab 01/26/20 09:00 01/27/20 09:52 Nephro-Josafat Tablet PO 1 tab DAILY GLORIA Administration Warfarin Sodium 2.5 mg 01/25/20 17:00 01/26/20 17:35 Coumadin PO 2.5 mg 1700 GLORIA Administration - Exam Eye: PERRL, anicteric sclera Heart: RRR, no murmur, no gallops, no rubs, normal peripheral pulses Respiratory: CTAB, no wheezes, no rales, no ronchi, normal chest expansion, no tachypnea Gastrointestinal: soft, non-tender, non-distended, normal bowel sounds, no palpable masses Extremities: no cyanosis Hosp A/P (1) Abdominal pain Code(s): R10.9 - UNSPECIFIED ABDOMINAL PAIN Status: Acute (2) Morbid obesity Code(s): E66.01 - MORBID (SEVERE) OBESITY DUE TO EXCESS CALORIES Status: Acute (3) Obstructive sleep apnea of adult Code(s): G47.33 - OBSTRUCTIVE SLEEP APNEA (ADULT) (PEDIATRIC) Status: Acute (4) DM type 2 (diabetes mellitus, type 2) Status: Chronic (5) Hypertension Code(s): I10 - ESSENTIAL (PRIMARY) HYPERTENSION Status: Chronic - Plan * COVID pneumonia- his inflammatory markers are improving. He is at least 14 days out from symptoms. He is stable off any oxygen supplementation * Stable for discharge back to custodial
[2020-01-27] MEDS: Warfarin Sodium 2.5 MG TAB PO SCH (16:29)
[2020-01-27 20:05] LABS: Hemoglobin 12.8 g/dL (14.0-18.0); Platelet Count 346 thou/uL (130-400)
[2020-01-27] MEDS: Terazosin HCl 5 MG CAP PO SCH (20:26)
[2020-01-27] MEDS: NPH, Human Insulin Isophane 300 UNIT/3 ML VIAL SC SCH (20:27)
--- NOTE | 2020-01-27 21:53 | DIS ---
DATE OF ADMISSION: 01/24/2020 DATE OF DISCHARGE: 01/27/2020 DISCHARGE DISPOSITION: Back to [facility] DISCHARGE DIAGNOSES: 1. Acute on chronic respiratory failure secondary to COVID-19. 2. COVID-19 pneumonia. 3. Hypertensive urgency. 4. Morbid obesity. The patient has a BMI of 61.1. He is 5 feet 8 inches, 402 pounds. 5. Diabetes mellitus, type 2. 6. History of hepatitis C. 7. Peripheral vascular disease. 8. History of deep vein thrombosis. DISCHARGE MEDICATIONS: 1. Hydralazine 25 mg p.o. t.i.d. as needed was added. 2. Clonidine 0.2 mg p.o. t.i.d. was also added. 3. Continue Coumadin 2.5 mg p.o. daily. 4. Hytrin 10 mg at bedtime. 5. Bactrim DS one tablet twice a day. 6. Spironolactone 50 mg at bedtime. 7. Multivitamin once daily. 8. Metoprolol 100 mg twice daily. 9. Isosorbide mononitrate 60 mg daily. 10. Novolin R as directed. 11. NPH insulin 26 units at bedtime. 12. Lasix 40 mg twice a day. 13. Carbamazepine 600 mg p.o. b.i.d. 14. Aspirin 81 mg daily. 15. Vitamin C 500 mg p.o. b.i.d. 16. Proventil 2 puffs q.6 as needed. IMAGING DONE DURING THE HOSPITAL STAY: The patient had a CT scan of the abdomen and pelvis showing no acute intraabdominal process. CODE STATUS: Full code. ALLERGIES: TO VANCOMYCIN AND IBUPROFEN. HOSPITAL COURSE: Mr. Cordero is a 54-year-old gentleman, who was admitted to the hospital complaining of abdominal pain. The full details of which are outlined in the history and physical. He says he described it as coming from his abdomen and then going up into his chest. CT scan findings were negative for any intraabdominal findings, but did show some infiltrates in the lower lungs. A COVID screen was done and became positive and it was felt that his symptoms were due to COVID pneumonia. He had some degree of dyspnea and multiple comorbid conditions. For this reason, ID was consulted. It was felt that he was well beyond the time frame to benefit from remdesivir as he was almost 14 days symptomatic by the time he had presented to the emergency room here. Inflammatory markers were obtained and trended. Once these began to trend down and the patient was stable off supplemental oxygen, he was able to be discharged back to the [facility]. Job ID: [id number]
[2020-01-28 00:51] VITALS: BP 132/88; TEMP 99.4
--- NOTE | 2020-02-05 15:16 | EKG ---
Test Reason : Blood Pressure : / mmHG Vent. Rate : 092 BPM Atrial Rate : 092 BPM P-R Int : 224 ms QRS Dur : 100 ms QT Int : 364 ms P-R-T Axes : 018 -56 059 degrees QTc Int : 450 ms Sinus rhythm with 1st degree A-V block Possible Left atrial enlargement Left anterior fascicular block Anterolateral infarct , age undetermined Abnormal ECG Confirmed by MEGAN BOND M.D. ([id number]), scientific publications editor ELY WU ([id number] on 02/05/2020 3:16:19 PM Referred By: Confirmed By:MEGAN BOND M.D.
== END 2020-01-28 02:32 | DRG 177 ==
LOC: ERS 22:29 → EEVIPCON 22:29 → OBSVTOIN 01-24 02:23 → 2NO 01-24 02:23 → 2SW 01-24 04:51
PROVIDERS: ADMIT Internal Medicine; ATTEND Internal Medicine
PROC: 8E0ZXY6 Isolation (ICD-10-PCS; principal; 2020-01-24)
DX: U07.1 COVID-19 (principal); J12.89 Other viral pneumonia; J96.20 Acute and chronic respiratory failure, unspecified whether with hypoxia or hypercapnia; Z68.44 Body mass index [BMI] 60.0-69.9, adult; N17.9 Acute kidney failure, unspecified; I11.0 Hypertensive heart disease with heart failure; I50.9 Heart failure, unspecified; N40.0 Benign prostatic hyperplasia without lower urinary tract symptoms; E66.01 Morbid (severe) obesity due to excess calories; G47.33 Obstructive sleep apnea (adult) (pediatric); E11.51 Type 2 diabetes mellitus with diabetic peripheral angiopathy without gangrene; I16.0 Hypertensive urgency; Z87.891 Personal history of nicotine dependence; Z86.19 Personal history of other infectious and parasitic diseases; Z88.6 Allergy status to analgesic agent; Z86.718 Personal history of other venous thrombosis and embolism; Z88.1 Allergy status to other antibiotic agents; Z79.899 Other long term (current) drug therapy; Z79.82 Long term (current) use of aspirin; Z79.01 Long term (current) use of anticoagulants; Z79.4 Long term (current) use of insulin
CPT/HCPCS: 36415; 36416; 74177; 80048; 80053; 81003; 81015; 82553; 82565; 82728; 83690; 84484; 85014; 85018; 85025; 85049; 85379; 85610; 86140; 87635; 93005; J1650; J1815; U0003

== ENCOUNTER 2022-01-13 14:12 | Inpatient (IN) | payer OTHER ==
[~2022-01-13 14:12] MED LIST: Iopamidol-370 76% 500 ML 1 ML ONE
[2022-01-13] MEDS ORDERED: hydrALAZINE 20 MG/ML VIAL ONE ×2 (14:37→15:11)
[2022-01-13 15:01] LABS: Hemoglobin 13.8 g/dL (14.0-18.0); Mean Corpuscular HGB CONC 32.1 g/dL (32.0-36.0); Mean Corpuscular Hemoglobin 30.3 pg (27.0-31.0); Mean Corpuscular Volume 94.4 fL (78.0-98.0); RBC Distribution Width 13.2 % (11.5-14.5); Red Blood Cell (RBC) Count 4.55 mill/uL (4.70-6.10)
[2022-01-13 15:19] LABS: Band 1 % (5-11); Eosinophils 2 % (0-10); Lymphocytes 30 % (21-51); MDiff Complete? YES; Monocytes 13 % (0-10); Neutrophil 54 % (42-75); Platelet Morphology Comment Appears Decreased; RBC Morphology Normal
[2022-01-13 15:20] LABS: Mean Platelet Volume 8.5 fL (7.4-10.4); Platelet Count 118 thou/uL (130-400); White Blood Cell (WBC) Count 4.3 thou/uL (4.8-10.8)
[2022-01-13] MEDS ORDERED: niCARdipine 25 MG/10 ML VIAL ONE ×3 (15:51→18:00)
[2022-01-13 16:23] LABS: ALT (SGPT) 25 U/L (8-55); AST (SGOT) 25 U/L (5-34); Albumin 3.5 g/dL (3.5-5.0); Alkaline Phosphatase 149 U/L (40-110); Anion Gap 11 mmol/L (10-20); BUN (Urea Nitrogen) 24 mg/dL (8.4-25.7); Bilirubin, Total 0.6 mg/dL (0.2-1.2); Calc. Creatinine Clearance 0 mL/min (70-130); Calcium 9.2 mg/dL (7.8-10.44); Carbon Dioxide 30 mmol/L (22-29); Chloride 99 mmol/L (98-107); Glucose 265 mg/dL (70-105); Potassium 4.1 mmol/L (3.5-5.1); Protein, Total 8.5 g/dL (6.0-8.3); Sodium 136 mmol/L (136-145)
[2022-01-13 16:34] LABS: CKMB 1.9 ng/mL (0-6.6)
[2022-01-13 17:56] LABS: SARS-CoV-2 NAA Rapid Test Not Detected (NotDetected)
[2022-01-13] MEDS ORDERED: niCARdipine 25 MG in Sodium Chloride 0.9% 250 ML 250 ML IVPB SCH (20:15)
[2022-01-13 20:45] LABS: Troponin I 0.068 ng/mL (< 0.028)
[2022-01-13] MEDS ORDERED: Aspirin 325 mg Enteric Coated Tablet PO SCH (22:00)
[2022-01-13] MEDS ORDERED: Albuterol Sulfate 2.5 mg/3 ml Neb NEB PRN (22:05)
[2022-01-13] MEDS ORDERED: Carvedilol 25 MG TAB PO SCH (22:15)
[2022-01-13] MEDS ORDERED: NPH, Human Insulin Isophane 300 UNIT/3 ML VIAL SC SCH (22:15)
[2022-01-13 22:34] LABS: Troponin I 0.082 ng/mL (< 0.028)
[2022-01-13] MEDS: Acetaminophen 325 MG TAB PO PRN (23:14)
[2022-01-13] MEDS ORDERED: Dextrose 5% in Water 1,000 ML IV PRN (23:26)
[2022-01-13] MEDS ORDERED: Dextrose 50% Abboject 50 ML SYRINGE SLOW IVP PRN (23:26)
[2022-01-14] MEDS ORDERED: niCARdipine 25 MG in Sodium Chloride 0.9% 250 ML 250 ML IVPB SCH (00:15)
[2022-01-14 04:09] LABS: #Eosinphils 0.2 thou/uL (0.0-0.7); #Monocytes 0.6 thou/uL (0.11-0.59); #Neutrophils 2.6 thou/uL (1.40-6.50); %Basophils 0.2 % (0.0-1.0); %Eosinophils 3.5 % (0.0-10.0); %Lymphocytes 22.7 % (21.0-51.0); %Monocytes 13.8 % (0.0-10.0); %Neutrophils 59.9 % (42.0-75.0); Hemoglobin 12.4 g/dL (14.0-18.0); Mean Corpuscular HGB CONC 31.5 g/dL (32.0-36.0); Mean Corpuscular Hemoglobin 29.9 pg (27.0-31.0); Mean Corpuscular Volume 94.9 fL (78.0-98.0); Mean Platelet Volume 7.2 fL (7.4-10.4); Platelet Count 166 thou/uL (130-400); RBC Distribution Width 13.3 % (11.5-14.5); Red Blood Cell (RBC) Count 4.15 mill/uL (4.70-6.10); White Blood Cell (WBC) Count 4.4 thou/uL (4.8-10.8)
[2022-01-14 04:30] LABS: ALT (SGPT) 26 U/L (8-55); AST (SGOT) 25 U/L (5-34); Alkaline Phosphatase 120 U/L (40-110); Anion Gap 11 mmol/L (10-20); BUN (Urea Nitrogen) 18 mg/dL (8.4-25.7); Bilirubin, Total 0.5 mg/dL (0.2-1.2); Calc. Creatinine Clearance 251 mL/min (70-130); Calcium 8.9 mg/dL (7.8-10.44); Carbon Dioxide 27 mmol/L (22-29); Cardiac Risk 4.3 (Less than 4.5); Chloride 102 mmol/L (98-107); Cholesterol 132 mg/dl (< 200 Desired); Globulin 4.7 g/dL (2.4-3.5); Glucose 276 mg/dL (70-105); HDL Cholesterol 31 mg/dL (>60 Neg Risk); LDL Cholesterol, Calculated 88 mg/dL; Potassium 3.8 mmol/L (3.5-5.1); Protein, Total 7.7 g/dL (6.0-8.3); Sodium 136 mmol/L (136-145); Triglycerides 64 mg/dL (Less than 150)
[2022-01-14] MEDS: Acetaminophen 325 MG TAB PO PRN (07:17)
[2022-01-14] MEDS: Ascorbic Acid 500 mg Chewable Tablet PO SCH ×2 (08:07→21:24)
[2022-01-14] MEDS: Carvedilol 25 MG TAB PO SCH ×2 (08:07→16:17)
[2022-01-14] MEDS: Aspirin Chewable 81 MG TAB PO SCH (08:07)
[2022-01-14] MEDS: carBAMazepine 200 MG TAB PO SCH ×2 (08:07→21:25)
[2022-01-14] MEDS: Atorvastatin Calcium 40 MG TAB PO SCH (08:07)
[2022-01-14] MEDS: DULoxetine 60 MG CAP PO SCH ×2 (08:08→21:26)
[2022-01-14] MEDS: Loratadine 10 MG TAB PO SCH (08:08)
[2022-01-14] MEDS: Multivit, Therapeutic 1 TAB PO SCH (08:08)
[2022-01-14] MEDS: Potassium Chloride 10 MEQ TAB PO SCH (08:09)
[2022-01-14] MEDS: Ferrous Sulfate 325 MG TAB PO SCH (08:09)
[2022-01-14] MEDS: Furosemide 40 MG TAB PO SCH ×2 (08:09→21:26)
[2022-01-14] MEDS: Venlafaxine HCl XR 75 MG CAP PO SCH (08:10)
[2022-01-14] MEDS: Terbinafine 250 MG TAB PO SCH (08:10)
[2022-01-14] MEDS: Insulin Regular 300 UNITS/3 ML VIAL SC SCH ×2 (08:15→16:35)
[2022-01-14] MEDS: NPH, Human Insulin Isophane 300 UNIT/3 ML VIAL SC SCH ×2 (08:16→21:26)
[2022-01-14] MEDS ORDERED: Amlodipine 5 MG TAB PO SCH (10:00)
[2022-01-14] MEDS ORDERED: Losartan 25 MG TAB PO SCH (10:00)
[2022-01-14 10:55] LABS: Amphetamine Not Detected (NotDetected); Barbiturates Screen Not Detected (NotDetected); Benzodiazepine Screen Not Detected (NotDetected); Cocaine Metabolite Screen Not Detected (NotDetected); Methadone Not Detected (NotDetected); Methamphetamine Not Detected (NotDetected); Opiate Screen Not Detected (NotDetected); Oxycodone Screen Not Detected (NotDetected); Phencyclidine (PCP) Not Detected (NotDetected); THC/Cannabinoid Screen Not Detected (NotDetected); Tricyclic Screen Not Detected (NotDetected)
[2022-01-14] MEDS: Enoxaparin Sodium 40 MG/0.4 ML SYRINGE SC SCH (12:15)
[2022-01-14] MEDS: hydrALAZINE 20 MG/ML VIAL SLOW IVP PRN (16:31)
[2022-01-14] MEDS: Terazosin HCl 5 MG CAP PO SCH (21:25)
[2022-01-15] MEDS: NPH, Human Insulin Isophane 300 UNIT/3 ML VIAL SC SCH ×3 (00:54→20:37)
[2022-01-15] MEDS: HumaLOG 300 UNITS/3 ML VIAL SC PRN ×4 (01:02→20:40)
[2022-01-15] MEDS: hydrALAZINE 20 MG/ML VIAL SLOW IVP PRN ×2 (06:40→15:54)
[2022-01-15] MEDS ORDERED: Losartan 25 MG TAB PO SCH (09:00)
[2022-01-15] MEDS ORDERED: Amlodipine 5 MG TAB PO SCH (09:00)
[2022-01-15] MEDS: Loratadine 10 MG TAB PO SCH (09:06)
[2022-01-15] MEDS: Enoxaparin Sodium 40 MG/0.4 ML SYRINGE SC SCH (09:06)
[2022-01-15] MEDS: Furosemide 40 MG TAB PO SCH ×2 (09:06→20:34)
[2022-01-15] MEDS: Atorvastatin Calcium 40 MG TAB PO SCH (09:07)
[2022-01-15] MEDS: carBAMazepine 200 MG TAB PO SCH ×2 (09:07→20:33)
[2022-01-15] MEDS: DULoxetine 60 MG CAP PO SCH ×2 (09:07→20:34)
[2022-01-15] MEDS: Ascorbic Acid 500 mg Chewable Tablet PO SCH ×2 (09:07→20:33)
[2022-01-15] MEDS: Amlodipine 10 MG TAB PO SCH (09:07)
[2022-01-15] MEDS: Multivit, Therapeutic 1 TAB PO SCH (09:07)
[2022-01-15] MEDS: Carvedilol 25 MG TAB PO SCH ×2 (09:07→18:05)
[2022-01-15] MEDS: Venlafaxine HCl XR 75 MG CAP PO SCH (09:08)
[2022-01-15] MEDS: Ferrous Sulfate 325 MG TAB PO SCH (09:08)
[2022-01-15] MEDS: Aspirin Chewable 81 MG TAB PO SCH (09:08)
[2022-01-15] MEDS: Terbinafine 250 MG TAB PO SCH (09:08)
[2022-01-15] MEDS: Potassium Chloride 10 MEQ TAB PO SCH (09:08)
[2022-01-15] MEDS: Insulin Regular 300 UNITS/3 ML VIAL SC SCH ×2 (09:18→18:05)
[2022-01-15] MEDS ORDERED: Labetalol HCl 100 MG/20 ML VIAL SLOW IVP PRN (15:16)
[2022-01-15] MEDS: Terazosin HCl 5 MG CAP PO SCH (20:32)
[2022-01-15] MEDS: Losartan 25 MG TAB PO SCH (20:34)
[2022-01-16 06:11] VITALS: BMI 63.6
[2022-01-16] MEDS: Multivit, Therapeutic 1 TAB PO SCH (08:23)
[2022-01-16] MEDS: Potassium Chloride 10 MEQ TAB PO SCH (08:23)
[2022-01-16] MEDS: Enoxaparin Sodium 40 MG/0.4 ML SYRINGE SC SCH (08:23)
[2022-01-16] MEDS: Furosemide 40 MG TAB PO SCH ×2 (08:24→20:02)
[2022-01-16] MEDS: Ferrous Sulfate 325 MG TAB PO SCH (08:24)
[2022-01-16] MEDS: Aspirin Chewable 81 MG TAB PO SCH (08:24)
[2022-01-16] MEDS: Ascorbic Acid 500 mg Chewable Tablet PO SCH ×2 (08:24→20:02)
[2022-01-16] MEDS: DULoxetine 60 MG CAP PO SCH ×2 (08:24→20:02)
[2022-01-16] MEDS: carBAMazepine 200 MG TAB PO SCH ×2 (08:24→20:02)
[2022-01-16] MEDS: Losartan 25 MG TAB PO SCH ×2 (08:24→20:01)
[2022-01-16] MEDS: Carvedilol 25 MG TAB PO SCH ×2 (08:24→16:31)
[2022-01-16] MEDS: Venlafaxine HCl XR 75 MG CAP PO SCH (08:25)
[2022-01-16] MEDS: Loratadine 10 MG TAB PO SCH (08:25)
[2022-01-16] MEDS: Amlodipine 10 MG TAB PO SCH (08:25)
[2022-01-16] MEDS: Terbinafine 250 MG TAB PO SCH (08:25)
[2022-01-16] MEDS: Atorvastatin Calcium 40 MG TAB PO SCH (08:25)
[2022-01-16] MEDS: NPH, Human Insulin Isophane 300 UNIT/3 ML VIAL SC SCH ×2 (08:26→20:02)
[2022-01-16] MEDS: Insulin Regular 300 UNITS/3 ML VIAL SC SCH ×2 (08:27→16:32)
[2022-01-16 11:31] VITALS: BP 168/106
[2022-01-16] MEDS: Terazosin HCl 5 MG CAP PO SCH (20:01)
[2022-01-16] MEDS: Acetaminophen 325 MG TAB PO PRN (20:01)
[2022-01-16 21:35] VITALS: TEMP 97.6
== END 2022-01-16 22:30 | DRG 65 ==
LOC: ERS 14:12 → CCU 18:51 → EEVIPCON 18:51 → CCU 01-15 06:31
PROVIDERS: ADMIT Student in an Organized Health Care Education/Training Program; ATTEND Student in an Organized Health Care Education/Training Program
DX: I63.89 Other cerebral infarction (principal); I16.1 Hypertensive emergency; I13.0 Hypertensive heart and chronic kidney disease with heart failure and stage 1 through stage 4 chronic kidney disease, or unspecified chronic kidney disease; Z68.44 Body mass index [BMI] 60.0-69.9, adult; I50.32 Chronic diastolic (congestive) heart failure; Z20.822 Contact with and (suspected) exposure to COVID-19; K21.9 Gastro-esophageal reflux disease without esophagitis; N40.0 Benign prostatic hyperplasia without lower urinary tract symptoms; H53.2 Diplopia; E66.01 Morbid (severe) obesity due to excess calories; G47.33 Obstructive sleep apnea (adult) (pediatric); N18.9 Chronic kidney disease, unspecified; Z87.891 Personal history of nicotine dependence; Z79.899 Other long term (current) drug therapy; Z79.4 Long term (current) use of insulin; Z88.1 Allergy status to other antibiotic agents; Z88.5 Allergy status to narcotic agent; Z79.51 Long term (current) use of inhaled steroids
CPT/HCPCS: 36415; 36416; 70450; 70496; 70498; 80053; 80061; 80306; 82553; 83036; 84443; 84484; 85025; 93005; 93306; 96365; 96366; 96375; 96376; J0360; J1650; J1815; J7050; Q9967; U0002